=== PATIENT | female | born 1950 | race Caucasian/White ===

== ENCOUNTER 2017-04-10 10:00 | Inpatient (IN) | payer MEDICARE, OTHER ==
[~2017-04-10] VITALS: Ht 149.1 cm; Wt 55.5 kg
--- NOTE | ~2017-04-10 | DS ---
PATIENT'S NAME: SHELBY [facility] AGE: 66 Y [address] ROOM: [place] [address] LOCATION: [facility] ADMIT DATE: 04/22/2017 Discharge Summary DISCHARGE DATE: 04/24/2017 FAMILY PHYSICIAN: Matias Jacobsen MD ATTENDING PHYSICIAN: Charan Osorio PRIMARY DIAGNOSIS: Degenerative joint disease of left knee. SECONDARY DIAGNOSES: 1. Hypertension. 2. Depression. 3. Hypothyroidism. 4. Rest legs syndrome. 5. History of transient ischemic attacks. 6. History of migraine headaches. PROCEDURE: Left total knee arthroplasty. HISTORY: The patient is a 66-year-old female who presents with advanced left knee degenerative joint disease and associated severely compromised activities of daily living. The patient has decided to proceed with total knee arthroplasty after having been thoroughly counseled regarding the risks, benefits, limitations, and alternatives. Please refer to the outpatient clinical notesand admission history and physical for this patient. HOSPITAL COURSE: The patient underwent left total knee arthroplasty on April 22, 2017 without complications. Spinal anesthesia with peripheral nerve blocks were utilized. The patient received 24 hours of perioperative prophylactic antibiotics and remained hemodynamically stable, neurovascularly intact throughout the entire hospital course. Postoperative prophylactic deep vein thrombosis prophylaxis consisted of Xarelto, early mobilization, and pneumatic compression devices. Daily physical therapy for gait training, transfer training, range of motion, and quadriceps isometric exercises were received. The patient progressed well in physical therapy. On the date of discharge, April 24, 2017, the Mepilex dressing was in place at the knee, and there were no signs of infection noted. DISPOSITION: Home. DISCHARGE ACTIVITIES: The patient is to be weightbearing as tolerated with range of motion and quadriceps isometric exercises as instructed. The operative extremity is to be elevated at least 90% of the day. The Mepilex dressings covering the patient's surgical incisions are kept on until the patient is seen in followup. Dr. Osorio to be notified immediately if there is any increasing pain, fever, chills, erythema or drainage. PATIENT'S NAME: [facility] AGE: 66 Y [address] ROOM: [address] [address] LOCATION: [facility] ADMIT DATE: 04/22/2017 Discharge Summary DISCHARGE DATE: 04/24/2017 FAMILY PHYSICIAN: Matias Jacobsen MD ATTENDING PHYSICIAN: Charan Osorio DISCHARGE MEDICATIONS: Stop medications: 1. Relafen. 2. Denio. New medications: 1. Hydromorphone 2 mg 1 to 2 tabs every 4 hours as needed for pain. 2. Diazepam 5 mg half to one tab every 6 hours as needed for muscle spasms. 3. Xarelto 10 mg p.o. daily to be taken until May 04, 2017. 4. MiraLAX powder 17 g every 12 hours as needed for constipation. 5. Oxycodone 10 mg p.o. every 12 hours. 6. Colace 100 mg p.o. b.i.d. for constipation. 7. Dose changed to acetaminophen 1000 mg every 6 hours as needed for pain. 8. Otherwise, the patient was to continue her preadmission medications as instructed by her internal medicine doctor. FOLLOWUP: The patient is to follow up in Dr. Osorio' office on May 07, 2017, at 9:00 a.m. for initial postoperative evaluations with x-rays and for staple removal. ALYSIA LUDWIG PA-C FOR CHARAN OSORIO MD TJW/modl /[id number] d: 05/06/17 0158 t: 05/06/17 1519, DISCHARGE SUMMARY
--- NOTE | ~2017-04-10 | OR ---
PATIENT'S NAME: [facility] AGE: 66 Y [address] ROOM: [place] [address] LOCATION: [facility] ADMIT DATE: 04/22/2017 OR/Procedure Report DISCHARGE DATE: FAMILY PHYSICIAN: Matias Jacobsen MD ATTENDING PHYSICIAN: ROSA MARIA BERGER SURGEON: Rosa Maria Berger MD GRAVEL WEIGHER: Madhav Moya PA-C DATE OF PROCEDURE: 04/22/2017 PREOPERATIVE DIAGNOSIS: Left knee tricompartmental primary osteoarthritis. POSTOPERATIVE DIAGNOSIS: Left knee tricompartmental primary osteoarthritis. PROCEDURE PERFORMED: Left total knee arthroplasty with computer-aided navigation. ANESTHESIA: Spinal with peripheral nerve blocks. FLUIDS: See Anesthesia report. ESTIMATED BLOOD LOSS: Minimal. TOURNIQUET: Left proximal thigh at 250 mmHg. SPECIMEN: None. COMPLICATIONS: None. DISPOSITION: Stable in PACU. COUNTS: All counts were correct. IMPLANTS: Include: Zahra left total knee arthroplasty Triathlon system, size 3 tibia, size 4 posterior stabilized femur, size 29 asymmetric patella, 9 mm thickness, size 11 tibial polyethylene insert, and Simplex antibiotic bone cement. INDICATIONS: Ms. Phillips is a pleasant, 66-year-old female who underwent the noted procedures above. The risks, benefits, and alternatives pursuing a surgical intervention were discussed with the patient in detail. She elected to proceed with surgery as noted above. I marked the patient's left lower extremity indicating correct surgical site. Anesthesia was consulted for their perioperative evaluation of the patient. DESCRIPTION OF PROCEDURE: Operative report in detail: The patient was PATIENT'S NAME: BARB [facility] AGE: 66 Y [address] ROOM: [place] [address] LOCATION: [facility] ADMIT DATE: 04/22/2017 OR/Procedure Report DISCHARGE DATE: FAMILY PHYSICIAN: Matias Jacobsen MD ATTENDING PHYSICIAN: ROSA MARIA BERGER brought from the holding area to the operating room. A time-out was performed. The anesthesia was administered. She received 100 mg of clindamycin for perioperative prophylaxis. The patient was placed supine on the operating room table. The left lower extremity was then prepped and draped in a sterile fashion. I turned my attention to the left knee. An Esmarch was used to exsanguinate the limb and the tourniquet was inflated to 250 mmHg. I began with a median parapatellar incision to access the knee joint. The skin incision with a #10 blade knife was carried through the skin, subcutaneous tissue, and flaps were raised. The capsule was sharply incised. The joint itself revealed evidence of advanced degenerative changes especially in the medial patellofemoral compartments. Using a Bovie electrocautery device, the anterior and posterior cruciate ligaments and medial and lateral menisci were removed. I performed a medial release as there was some varus deformity of the knee. I then turned my attention to the distal femur. I began by introducing my distal femur, and using computer-aided navigation, positioned the jig for my distal femoral cut. This was done using a sagittal saw. I then turned my attention to the proximal tibia. Again, using computer-aided navigation, we pinned the jig in place and confirmed the position of the component. Using a sagittal saw, I made my proximal tibial cut. I then checked my box spacing. The rectangular box was in good anatomic alignment. I then turned my attention to the proximal tibia. I reamed, subsequently broached, and placed a tibial tray in place. I then finished my distal femur using a sagittal saw to make my anterior, posterior, and chamfer cuts. I then made my box cut and placed my trial femur. A size 11 polyethylene liner was placed and the knee was taken through range of motion and deemed stable from 0 to 140 degrees. The collaterals were stable as well. The patella tracked well. I subsequently turned my attention to the patella. Using my patellar jig, I used an oscillating saw to make my patellar cut. A trial button was placed. The knee was then taken through range of motion. The patella tracked well and the knee was stable. All the trial componentry was subsequently removed. The knee was copiously PATIENT'S NAME: MAYE PHILLIPS [facility] AGE: 66 Y [address] ROOM: [id number] [place], [place] [address] LOCATION: [facility] ADMIT DATE: 04/22/2017 OR/Procedure Report DISCHARGE DATE: FAMILY PHYSICIAN: Matias Jacobsen MD ATTENDING PHYSICIAN: ROSA MARIA BERGER irrigated with a normal sterile saline solution using pulsatile lavage. Cement was mixed, and the final implants were placed beginning with the tibia. Once the tibia was stable and the excess cement was removed, I turned my attention to the distal femur. Distal femur was impacted and the remaining cement was removed from around it. The 11 trial polyethylene liner was placed. I then cemented the patellar button in place. Once the cement cured, all the excess cement was removed using an osteotome and mallet. The joint was then copiously irrigated with a normal sterile saline solution, after the trial polyethylene was removed. There were no loose bodies noted. I then implanted a final size 11 polyethylene. The knee was taken through range of motion, deemed stable through 0 degrees of extension to 140 degrees of flexion. The collaterals were stable. The patella tracked well. I performed a layered closure using a Stratafix barbed suture to approximate the capsule followed by 0 Vicryl and 2-0 Vicryl suture to approximate the skin followed by edilma and a Mepilex dressing. A compressive dressing was placed at the knee using Webril and Juanjose bandage. The tourniquet was let down and the foot and ankle reperfused. The patient was then transferred from the operating room table onto the stretcher and brought to the recovery room in stable condition. There were no intraoperative complications noted. Of note, my PA, Madhav Moya PA-C, played an integral role in the intraoperative care of this patient. This included preoperative positioning, intraoperative expert retraction, and closing and dressing functions. IMPRESSION: The patient is status post computer-aided left total knee arthroplasty. PLAN: The patient will be weightbearing as tolerated on the left lower extremity. She will be encouraged to rest, ice, and elevate while the block is in place. Postoperative pain control will be in the form of Percocet and IV morphine as needed for pain. Postoperative antibiotics will be in the form of clindamycin. The hospitalist will be consulted to manage the patient's concomitant medical comorbidities. Physical Therapy and Occupational Therapy will be consulted for early ambulation and prevention of deconditioning. Postoperative DVT prophylaxis will be in the form of Lovenox. I will continue to monitor the patient closely in the postoperative period. ROSA MARIA BERGER MD [facility]GE: 66 Y [address] ROOM: [address] [address] LOCATION: [facility] ADMIT DATE: 04/22/2017 OR/Procedure Report DISCHARGE DATE: FAMILY PHYSICIAN: Matias Jacobsen MD ATTENDING PHYSICIAN: ROSA MARIA BERGER/jerry /[id number] d: 04/22/17 1242 t: 04/22/17 1521, OPERATIVE SUMMARY
[~2017-04-10 10:00] MED LIST: AMBIEN10 MG PO; ASPIRIN325 MG PO; EFFEXOR XR150 MG PO; KEPPRA1000 MG PO; LEVOTHROID(SYN75 MCG PO; LIPITOR80 MG PO; LISINOPRIL40 MG PO; RELAFEN500 MG PO; REQUIP1 MG PO; ULTRAM50 MG PO
[2017-04-10] MEDS ORDERED: LIVALO4 MG PO (17:34)
[2017-04-10] MEDS ORDERED: REQUIP1 MG PO (17:36)
[2017-04-10] MEDS ORDERED: EFFEXOR XR75 MG PO (17:37)
[2017-04-10] MEDS ORDERED: NORCO 5-325 TA1 EACH PO (17:40)
[2017-04-10] MEDS ORDERED: PAIN RELIEVER650 MG PO (17:43)
[2017-04-10] MEDS ORDERED: BIOTIN5000 MCG PO (17:44)
[2017-04-10] MEDS ORDERED: ASCORBIC ACID500 MG PO (17:44)
[2017-04-10] MEDS ORDERED: GLUCOSA-CHOND-1 EACH PO (17:45)
[2017-04-10] MEDS ORDERED: PRENATAL 1+1)(P1 TAB PO (17:45)
--- NOTE | 2017-04-22 15:44 | NUR ---
Significant Event: Received from PACU at 1115. Will be on routine VS. Dressing dry and intact to lt knee. CSM WNL. Dilaudid 2mg at 1342. Up to commode/chair with PT. Voided. Taking po well. Follow up:
--- NOTE | 2017-04-23 03:23 | NUR ---
Significant Event: AO. VSS ON RA, AFEBRILE. SALINE LOCK TO L FA. CONTINUES ON IV ABX FOR 1 MORE DOSE. TOLERATING REGULAR DIET. DRESSING TO L KNEE, C/D/I. CSM WNL. AMBUALTED WITH SBA, GAITBELT AND WALKER. PRN DILAUDID LAST AT 0030, ANTICIPATE GIVING ANOTHER DOSE BEFORE END OF SHIFT. PRN TORADOL X1 AT 2220. PLEASANT AND COOPERATIVE. Follow up: PAIN CONTROL
--- NOTE | 2017-04-23 11:45 | NUR ---
Introduced self/role to patient, friend present. She lives in [place]. Denied any needs or barriers to going home or at home. Has no DME needs. Added my name to her marker board.
--- NOTE | 2017-04-23 18:39 | NUR ---
Significant Event: UP TO RECFANNIER, OUT IN [place] WITH PT, AND UP TO BR, HAD NUMEROUS PAIN MES FOR KNEE DISCOMFORT, HAD DILAUDID 0.2 MG AND OXYCONTIN 10 MG TAB AT 1015, HAD TORADOL 15 MG IV AND VALIUM 2.5 MG PO AT 0930. HAD DILAUDID 2 MG TAB X5 LASTAT 1650. HAD VALIUM 5 MG 1 TAB AT 1530....CSM GOOD . FLAVIO WRAP D/I. ICE TO KNEE.. Follow up:
--- NOTE | 2017-04-24 04:23 | NUR ---
Shift Summary: Patient can ambulate with standby assist. Tolerating regular diet well. Voiding without difficulty. Gave 2mg Dilaudid, Toradol, and Valium at 2256. Has slept all night since then. Plans to go home today.
[2017-04-24] MEDS ORDERED: COLACE100 MG PO (07:28)
[2017-04-24] MEDS ORDERED: OXYCONTIN EXTEN10 MG PO (07:28)
[2017-04-24] MEDS ORDERED: MIRALAX17 GM PO (07:30)
[2017-04-24] MEDS ORDERED: XARELTO10 MG PO (07:31)
[2017-04-24] MEDS ORDERED: VALIUM5 MG PO (07:31)
[2017-04-24] MEDS ORDERED: DILAUDID 2MG(HYD2 MG PO (07:32)
--- NOTE | 2017-04-24 15:05 | NUR ---
Pt left to go home at 1400 with family. She is alert and oriented. Up and about with walker, WBAT and standby asst and does well. Mepilex intact to knee and dry. CSM WNL. Pt has rated pain at 3 most of shift. Takes dilaudid, tylenol and oxycontin. Pt has good intake and output. Has been amb in [place], to BR and up chair. Ice to knee and elevated most all other time. Pt understands all instructions, has DME at home and has all belongings. Pt discharged to home in stable condition
== END 2017-04-24 14:02 | disposition disaster alternative care site (69) | DRG 470 ==
LOC: G3N 04-22 05:53
PROVIDERS: ADMIT Orthopaedic Surgery Adult Reconstructive Orthopaedic Surgery
DX: M17.12 Unilateral primary osteoarthritis, left knee (principal); I10 Essential (primary) hypertension; F32.9 Major depressive disorder, single episode, unspecified; E03.9 Hypothyroidism, unspecified; Z86.73 Personal history of transient ischemic attack (TIA), and cerebral infarction without residual deficits; G25.81 Restless legs syndrome; Z88.8 Allergy status to other drugs, medicaments and biological substances; Z79.82 Long term (current) use of aspirin; K21.9 Gastro-esophageal reflux disease without esophagitis
CPT/HCPCS: C1713; C1776; J1100; J1170; J1885; J2001; J2250; J2795; J7050; J7120

== ENCOUNTER → 2017-04-16 | Outpatient (CLI) | payer MEDICARE, OTHER ==
[~2017-04-16] MED LIST changes: +ASCORBIC ACID500 MG PO; +BIOTIN5000 MCG PO; +COLACE100 MG PO; +DILAUDID 2MG(HYD2 MG PO; +EFFEXOR XR75 MG PO; +GLUCOSA-CHOND-1 EACH PO; +LIVALO4 MG PO; +MIRALAX17 GM PO; +NORCO 5-325 TA1 EACH PO; +OXYCONTIN EXTEN10 MG PO; +PAIN RELIEVER650 MG PO; +PRENATAL 1+1)(P1 TAB PO; +VALIUM5 MG PO; +XARELTO10 MG PO
== END | disposition disaster alternative care site (69) ==
LOC: GNJRC 10:10
DX: Z01.812 Encounter for preprocedural laboratory examination (principal); M17.12 Unilateral primary osteoarthritis, left knee